=== PATIENT | male | born 1940 | race Caucasian/White ===

== ENCOUNTER 2019-06-15 15:21 | Inpatient (IN) ==
[2019-06-15] MEDS ORDERED: DUONEB (A & A) INH PRN (17:36)
[2019-06-15 18:29] LABS: ALLEN TEST YES; BE 3.1 mmoll (-3.0-3.0); BLOOD TYPE ARTERIAL; HCO3-(ACT) 27.3 mmoll (20.0-26.0); METHB 0.4 % (0.0-1.5); O2(CT) 18.9 mL/dL (15.0-23.0); O2HB 95.9 % (95.0-99.0); PCO2(98.6) 38 mmHg (35-45); PO2(98.6) 71 mmHg (60-100); SAMPLE BLOOD; SAO2 98.3 % (95.0-100.0); pH(98.6) 7.46 (7.35-7.45)
[2019-06-15] MEDS: PROTONIX IV SCH (18:35)
[2019-06-15] MEDS: ZOSYN 3.375 GM in NS 50 ML IV SCH ×2 (18:35→23:41)
[2019-06-15] MEDS: SOLU-MEDROL IV SCH (18:36)
[2019-06-15 19:06] LABS: BASO# 0.02 X1000 (0.0-0.2); BASO% 0.2 % (0.0-0.8); EOS# 0.28 X1000 (0.0-0.7); HEMATOCRIT 42.2 % (42.0-52.0); HEMOGLOBIN 13.6 g/dL (14.0-18.0); IMM GRAN% 1.1 % (0.0-0.5); LYMPH# 1.13 X1000 (1.2-3.4); MCH 28.2 PG (27-31); MCHC 32.2 g/dL (33-37); MCV 87.6 FL (81-99); MONO# 0.77 X1000 (0.11-0.59); MONO% 8.2 % (1.7-9.3); MPV 9.3 FL (7.4-10.4); NEUT# 7.13 X1000 (1.4-6.5); NEUT% 75.5 % (42.2-75.2); PLT 309 X1000 (130-400); RBC 4.82 XMIL (4.7-6.1); RDW 13.7 % (11.5-14.5); WBC 9.43 X1000 (4.8-10.8)
[2019-06-15 19:20] LABS: AGAP 8; BUN 16 mg/dL (8-22); CALCIUM 8.9 mg/dL (8.8-10.2); CHLORIDE 102 mmol/L (98-107); COSMO 282; CREATININE 0.8 mg/dL (0.7-1.2); ESTIMATED GFR > 60; GLUCOSE 132 mg/dL (70-104); SODIUM 140 mmol/L (136-145); TCO2 30 mmol/L (25-35)
--- NOTE | 2019-06-15 20:19 | EKG Report ---
Test Performed on : 06/15/2019 6:13:46 PM Test Reason : chest pain Blood Pressure : / mmHG Vent. Rate : 078 BPM Atrial Rate : 078 BPM P-R Int : 220 ms QRS Dur : 138 ms QT Int : 410 ms P-R-T Axes : 066 -64 039 degrees QTc Int : 467 ms Sinus rhythm. with 1st degree AV block. Right bundle branch block Left anterior fascicular block Bifascicular block Minimal voltage criteria for LVH, may be normal variant Abnormal ECG When compared with ECG of 07-FEB-2016 12:33, Significant changes have occurred Confirmed by David Posada MD ([id number]) on 06/16/2019 9:03:01 PM
[2019-06-15] MEDS: LEVAQUIN 500 MG/D5W 500 MG/100 ML IVPB IV SCH (21:27)
[2019-06-15] MEDS: LOVENOX SUBQ SCH (22:27)
--- NOTE | 2019-06-15 22:47 | HISTORY AND PHYSICAL ---
CHIEF COMPLAINT: Cough, congestion. HISTORY OF PRESENT ILLNESS: He is a 78-year-old white gentleman supposed to have annual exam today. He was treated at a local walk-in clinic close to [place], [place] for the last 10 days with URI symptoms. Apparently had a chest x-ray showed with pneumonia. In my office, he has low-grade fever, cough. He had rhonchi and crackles in the right lung and subsequent chest x-ray residual infiltrate in the right middle lobe and upper lobe. He has been taking the antibiotics, not improving. He has been hospitalized with basically aggressive bronchial toilet, IV antibiotics. Pulse oximetry 95% on room air. As a result, a hospital admission was warranted. 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 PAST SURGICAL HISTORY: Uvulopalatopharyngoplasty, tonsillectomy, right upper lobectomy. MEDICATIONS: Amlodipine 5 mg daily, lisinopril 10 daily. ALLERGIES: Not known. SOCIAL HISTORY: , 2 children. He moved to [place], retired. No smoking, no drugs, no alcohol abuse. FAMILY HISTORY: Father of [place] at 67. Mom of old age. HEALTH MAINTENANCE: Flu vaccine 2018, pneumococcal vaccine 2013, shingles 2010. Last prostate exam today June 2019, colonoscopy 2019 in [place]. REVIEW OF SYSTEMS: HEENT exam: He has deafness, hearing loss. He also has wax with hearing aids. Vision problem with cataracts. No sore throat. Neck: No goiter. No neck pain. Cardiopulmonary: Cough, shortness of breath, and wheezing. Gastrointestinal: No nausea, vomiting abdominal pain. Occasional pain in the right upper quadrant. He had a known history of gallstones. Genitourinary: nocturia, slowly obstructive symptoms. Musculoskeletal: No swelling of legs. No joint pain. Neurological exam: No focal symptoms or weakness. PHYSICAL EXAMINATION: VITAL SIGNS: Temperature is 98 degrees, pulse 82. Vitals are stable. 6 feet tall, 179 pounds. HEENT: Atraumatic, normocephalic. Pupils equal, react to light. Cataracts present. Minimal wax in both ears with hearing aids present status post uvulopalatopharyngoplasty noted. NECK: Supple. No lymphadenopathy. RESPIRATORY: He has rhonchi and crackles in the right side of the lung. CARDIOVASCULAR: Heart sounds are regular. ABDOMEN: Belly is soft, obese, nontender. Good bowel sounds. GENITOURINARY: Prostate was enlarged. Heme-negative stool. EXTREMITIES: No peripheral edema or cyanosis. NEUROLOGIC: No obvious neurological deficits. INVESTIGATIONS: White cell count 9.4, hematocrit 42, platelets 309,000. ABG: pH is 7.46, pCO2 38, pO2 79, bicarb 27. SMA 7 is normal. Chest x-ray in my office showed right middle lobe infiltrate, which is worsening. ASSESSMENT AND PLAN: 1. A 78-year-old white male came in with failure of outpatient treatment with right middle lobe infiltrate, status post resection of the lobe by Dr. Muller and with failure of outpatient treatment. Continue on IV Levaquin, IV Zosyn, IV Solu-Medrol. 2. Deep venous thrombosis and gastrointestinal prophylaxis. Lovenox and Protonix. 3. Benign prostatic hypertrophy with normal PSA on Flomax 0.4 daily. 4. Hypertension on amlodipine and lisinopril. 5. Gallstone disease, currently symptomatic. We will consider laparoscopic cholecystectomy down the line. 6. Erectile dysfunction. Options were discussed. 7. Initiate vaccination protocol prior to the discharge. Discussed the plan of care with the and the patient and follow up. cc: Huang Nagel MD [facility]
[2019-06-16] MEDS: SOLU-MEDROL IV SCH ×3 (02:30→18:09)
[2019-06-16] MEDS: ZOSYN 3.375 GM in NS 50 ML IV SCH ×3 (06:25→18:09)
[2019-06-16] MEDS: MUCINEX PO SCH ×2 (09:42→21:05)
[2019-06-16] MEDS: LEVAQUIN 500 MG/D5W 500 MG/100 ML IVPB IV SCH (18:06)
[2019-06-16] MEDS: SODIUM CHLORIDE 0.9% INJ SCH (18:09)
[2019-06-16] MEDS: PROTONIX IV SCH (18:09)
[2019-06-16] MEDS: FLOMAX PO SCH (21:05)
[2019-06-16] MEDS: LOVENOX SUBQ SCH (21:05)
--- NOTE | 2019-06-16 22:14 | PROGRESS NOTE ---
DATE: 06/16/2019 SUBJECTIVE: The patient is feeling better and I got the reports from the chest x-ray. He does have a right lower lobe/ middle lobe pneumonia. PHYSICAL EXAMINATION: Vital Signs: Temperature is 97 degrees. Vitals are stable. HEENT: Within normal limits. Neck: Supple. Lungs: Decreased crackles and rhonchi. Physical examination with no change. ASSESSMENT AND PLAN: 1. Right lower lobe pneumonia. Continue present antibiotics with IV Zosyn and Levaquin and repeat the chest x-ray on . DVT GI prophylaxis as per order sheet. 2. Benign prostatic hypertrophy on Flomax. 3. Initiate vaccination protocol prior to the discharge. LEVEL OF DOCUMENTATION: 25 minutes. cc: Huang Nagel MD
[2019-06-17] MEDS: ZOSYN 3.375 GM in NS 50 ML IV SCH ×4 (00:34→18:48)
[2019-06-17] MEDS: SOLU-MEDROL IV SCH ×3 (01:10→17:46)
[2019-06-17] MEDS: MUCINEX PO SCH ×2 (09:26→21:01)
[2019-06-17] MEDS ORDERED: CARMEX LIP BALM TOP ONE (09:41)
[2019-06-17] MEDS: SODIUM CHLORIDE 0.9% INJ SCH (15:59)
[2019-06-17] MEDS: LEVAQUIN 500 MG/D5W 500 MG/100 ML IVPB IV SCH (16:52)
[2019-06-17] MEDS: PROTONIX IV SCH (17:45)
[2019-06-17] MEDS: FLOMAX PO SCH (21:01)
[2019-06-17] MEDS: LOVENOX SUBQ SCH (21:01)
--- NOTE | 2019-06-17 22:03 | PROGRESS NOTE ---
DATE: 06/17/2019 SUBJECTIVE: The patient is getting better. Decreased rhonchi. OBJECTIVE: On exam, temperature is 97.6 degrees, pulse 90, blood pressure is 136/74, 97% on room air. HEENT exam within normal limits. Decrease in consolidation sign. Heart sounds are regular. The rest of the exam is benign. ASSESSMENT AND PLAN: 1. Right lower lobe and middle lobe pneumonia. Continue intravenous Zosyn and steroids. Patient is clinically getting better. We will check the chest x-ray. If it is improving, we will discharge. 2. Benign prostatic hypertrophy, on Flomax. 3. Hypertension, currently on amlodipine and lisinopril. 4. We will decrease the intravenous steroids. Continue Mucinex. Initiate vaccination protocol prior to the discharge. Also we will repeat the chest x-ray in the morning. Level of documentation is 25 minutes. cc: Huang Nagel MD
[2019-06-18] MEDS: ZOSYN 3.375 GM in NS 50 ML IV SCH ×2 (01:10→06:25)
[2019-06-18 07:35] VITALS: BP 137/77
[2019-06-18] MEDS ORDERED: PREVNAR 13 IM ONE (08:36)
--- NOTE | 2019-06-18 08:51 | Diag Imaging Result Doc PS360 ---
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 Considering differences in technique this has not changed appreciably since 03/19/2016. The left lung is clear and unchanged. The heart size and pulmonary vascularity are within normal limits. IMPRESSION: Stable chest. Electronically signed by Michele Tidwell 06/18/2019 8:48 AM
[2019-06-18] MEDS ORDERED: SOLU-MEDROL IV SCH (09:00)
[2019-06-18] MEDS: MUCINEX PO SCH (10:11)
--- NOTE | 2019-06-20 21:33 | DISCHARGE SUMMARY ---
ADMISSION DATE: 06/15/2019 DISCHARGE DATE: 06/18/2019 DISCHARGING DIAGNOSIS: Right lower lobe pneumonia, unable to improve with outpatient treatment. SECONDARY DIAGNOSIS: 1. Asymptomatic gallstones. 2. BPH. 3. Hypertension. 4. Deafness. 5. Sleep apnea. 6. Status post carcinoid tumor excision of the right upper lobe by Dr. Muller in 2016. 7. History of bilateral cataracts. 8. Status post uvulopalatopharyngoplasty. BRIEF HISTORY: Please see the H and P that was done on 06/15/2019. In brief, he is a 78-year-old white gentleman recently diagnosed with right lower lobe pneumonia. He was treating as an outpatient at local urgent care in [place]. The patient was seen in my office at his annual exam. He has significant rhonchi and consolidation signs. Chest x-ray showed right lower lobe infiltrate. He is running low-grade fever, unable to improve with outpatient treatment. He has been hospitalized with aggressive IV antibiotics which include Zosyn, Levaquin, Mucinex. During the physical, he also has enlarged prostate with outlet obstructive symptoms. Patient was started on Flomax 0.4 mg daily and subsequently his symptoms are much improved. Followup chest x-ray interval resolution of infiltrates in the right lower lobe. LABS: White cell count 9.4, hematocrit 42, platelets 309,000. ABG pH is 7.46, pCO2 38, PO2 71. SMA 7 was normal. Unable to do any sputum cultures. DISCHARGE INSTRUCTIONS: 1. Patient was given pneumococcal vaccine 13, 06/18/2019. 2. Amlodipine 5 mg daily. We will hold lisinopril 10 mg daily, Flomax 0.4 daily, Medrol Dosepak, Levaquin 500 daily for 8 days, guaifenesin 600 p.o. b.i.d. Continue to monitor the blood pressure and follow up in my office next week. cc: Huang Nagel MD [facility]
== END 2019-06-18 10:31 | disposition home or self-care (01) | DRG 195 ==
LOC: DIRADM 15:21 → 3N 16:18
PROVIDERS: ADMIT Internal Medicine; ATTEND Internal Medicine